=== PATIENT | female | born 1950 | race Caucasian/White ===

== ENCOUNTER 2017-01-20 08:59 | Day surgery (SDC) | payer MEDICARE, OTHER ==
[~2017-01-20] VITALS: Ht 151.1 cm; Wt 78.9 kg
[~2017-01-20 08:59] MED LIST: BENADRYL25 MG PO; CALCIUM 600 +1 EACH PO; HYDROCHLOROTHIA25 MG PO; L-LYSINE500 MG PO; LISINOPRIL40 MG PO; LOTRIMIN AF28.35 GM TOP; PRAVACHOL40 MG PO; PRAVACHOL80 MG PO
== END 2017-01-20 12:50 | disposition short-term general hospital (02) ==
LOC: SURGOP 08:59
PROC: 08RK3JZ Replacement of Left Lens with Synthetic Substitute, Percutaneous Approach (ICD-10-PCS; principal; 2017-01-20)
DX: H26.9 Unspecified cataract (principal); M15.9 Polyosteoarthritis, unspecified; E78.5 Hyperlipidemia, unspecified; L68.0 Hirsutism; I10 Essential (primary) hypertension; Z96.1 Presence of intraocular lens; Z87.440 Personal history of urinary (tract) infections; Z79.899 Other long term (current) drug therapy; Z90.89 Acquired absence of other organs; Z87.891 Personal history of nicotine dependence
CPT/HCPCS: J0171; J3473; V2632

== ENCOUNTER 2017-02-17 11:22 | Day surgery (SDC) | payer MEDICARE, OTHER | END 2017-02-17 16:00 | disposition short-term general hospital (02) | LOC: SURGOP 11:22 | PROC: 08RJ3JZ Replacement of Right Lens with Synthetic Substitute, Percutaneous Approach (ICD-10-PCS; principal; 2017-02-17) | DX: Z96.1 Presence of intraocular lens (principal); H26.9 Unspecified cataract; I10 Essential (primary) hypertension; E78.5 Hyperlipidemia, unspecified; M15.9 Polyosteoarthritis, unspecified; E66.9 Obesity, unspecified; Z68.34 Body mass index [BMI] 34.0-34.9, adult; Z87.891 Personal history of nicotine dependence; Z79.899 Other long term (current) drug therapy; Z98.42 Cataract extraction status, left eye; Z90.89 Acquired absence of other organs; Z98.890 Other specified postprocedural states | CPT/HCPCS: J0171; J3473; V2632 ==